=== PATIENT | female | born 1965 | race Two or more races ===

== ENCOUNTER 2021-11-09 08:44 | Emergency (ER) | payer MEDICAID, OTHER ==
[~2021-11-09] VITALS: Ht 157.5 cm; Wt 65.8 kg
[2021-11-09 09:15] LABS: Urine Bacteria NONE SEEN /hpf (None Seen); Urine Blood 1+ /uL (Negative); Urine Hyaline Cast FEW /lpf (0 - 2); Urine Mucus FEW (None Seen); Urine Specific Gravity 1.019 (1.001-1.035); Urine WBC 31 /hpf (0 - 5); Urine WBC Clumps PRESENT /hpf (None Seen)
[2021-11-09 09:21] LABS: Eosinophils # (auto) 0.2 10 ^3/uL (0-0.8); Eosinophils % (auto) 0.9 % (0.0-7.0); Hemoglobin 13.4 g/dL (12.2-16.2); Nucleated Red Blood Cells % 0.1 %
[2021-11-09 09:24] LABS: Basophils # (auto) 0.1 10 ^3/uL (0-0.2); Basophils % (auto) 0.4 % (0.0-2.0); Hematocrit 39.2 % (36.0-46.0); Lymphocytes # (auto) 1.3 10 ^3/uL (0.4-5.4); Lymphocytes % (auto) 7.5 % (10.0-50.0); Mean Corpuscular Hemoglobin 28.8 pg (28.0-32.0); Mean Corpuscular Volume 84.5 fL (80.0-100.0); Monocytes # (auto) 1.5 10 ^3/uL (0-1.3); Monocytes % (auto) 8.8 % (0.0-12.0); Neutrophils # (auto) 14.4 10 ^3/uL (1.6-8.6); Neutrophils % (auto) 82.4 % (37.0-80.0); Red Blood Cells 4.64 10^6/uL (4.0-5.20); Red Cell Distribution Width 15.5 % (11.8-14.3); White Blood Cell 17.4 10^3/uL (4.4-10.8)
[2021-11-09 09:41] LABS: BUN/Creatinine Ratio 20.7; Calcium 9.5 mg/dL (8.5-10.1); Potassium 3.3 mmol/L (3.5-5.1)
[2021-11-09 09:43] LABS: Bilirubin, Total 1.8 mg/dL (0.2-1.0); Total Protein 8.9 g/dL (6.4-8.2)
[2021-11-09 10:30] VITALS: BP 134/71
[2021-11-09] MEDS ORDERED: MORPHINE SULFATE INJECTION 2 MG/ML SYRG IV ONE (10:30)
[2021-11-09] MEDS ORDERED: ONDANSETRON HCL 4 MG/2 ML VIAL IV ONE (10:30)
[2021-11-09] MEDS ORDERED: SODIUM CHLORIDE 0.9% 1,000 ML IV ONE (10:30)
[2021-11-09] MEDS ORDERED: cefTRIAXone 1GM/50ML D5W 50 ML IV ONE (10:45)
== END 2021-11-09 12:13 | disposition home or self-care (01) ==
LOC: ER 08:44
DX: K80.10 Calculus of gallbladder with chronic cholecystitis without obstruction (principal); N39.0 Urinary tract infection, site not specified; K80.50 Calculus of bile duct without cholangitis or cholecystitis without obstruction; I10 Essential (primary) hypertension
CPT/HCPCS: 36415; 76705; 80053; 81001; 83605; 83690; 84484; 85025; 96361; 96365; 96375; 99285; J0696; J2270; J2405; J7030; 93005